=== PATIENT | male | born 1985 | race Caucasian/White ===

== ENCOUNTER 2020-08-26 07:46 | Emergency (ER) | payer MEDICAID, OTHER ==
[2020-08-26] MEDS ORDERED: NS 1,000 ML IV ONE (08:05)
[2020-08-26] MEDS ORDERED: ONDANSETRON 4MG/2ML VIAL IV ONE (08:20)
[2020-08-26 08:21] LABS: BASO % 0.1 % (0.0-1.0); HEMATOCRIT 44.1 % (42.0-52.0); HEMOGLOBIN 15.4 g/dl (13.5-17.5); LYMPH # 1.4 10^3/uL (1.5-5.0); LYMPH % 11.7 % (24.0-44.0); MEAN CORPUSCULAR HEMOGLOBIN 31.4 pg (27.0-33.0); MEAN CORPUSCULAR HGB CONC 34.9 g/dl (32.0-36.5); MEAN CORPUSCULAR VOLUME 89.8 fl (80.0-96.0); MONO # 0.5 10^3/uL (0.0-0.8); MONO % 4.5 % (2.0-8.0); NEUTROPHILS # 9.9 10^3/uL (1.5-8.5); NEUTROPHILS % 83.4 % (36.0-66.0); PLATELET COUNT, AUTOMATED 278 10^3/uL (150-450); RED BLOOD COUNT 4.91 10^6/uL (4.30-6.10); WHITE BLOOD COUNT 11.8 10^3/uL (4.0-10.0)
--- NOTE | 2020-08-26 08:38 | REP ---
INDICATION: Altered Mental Status. COMPARISON: 11/09/2012. TECHNIQUE: Single portable AP view of the chest was performed. FINDINGS: There is no acute infiltrate or pulmonary edema. Lungs are clear. The heart is not significantly enlarged. The mediastinal silhouette is unremarkable. The visualized osseous structures are intact. IMPRESSION: No acute pulmonary disease. <Electronically signed by Beau Hopkins > 08/26/20 0834
[2020-08-26] MEDS ORDERED: ISOVUE-370 76% 100ML VIAL As Ordered ONE (08:41)
[2020-08-26 09:01] LABS: ACETAMINOPHEN LEVEL < 2.0 UG/ML (10.0-30.0); ALBUMIN 4.5 GM/DL (3.2-5.2); ALT/SGPT 19 U/L (12-78); BILIRUBIN,DIRECT 0.2 MG/DL (0.0-0.2); BILIRUBIN,TOTAL 0.6 MG/DL (0.2-1.0); BLOOD UREA NITROGEN 18 MG/DL (7-18); CARBON DIOXIDE LEVEL 25 MEQ/L (21-32); CHLORIDE LEVEL 100 MEQ/L (98-107); CK-MB VALUE MASS < 1.0 NG/ML (<3.6); CPK CREATINE PHOSPHOKINASE 95 U/L (39-308); CREATININE FOR GFR 0.93 MG/DL (0.70-1.30); ETHYL ALCOHOL (ETHANOL) < 0.003 % (0.000-0.010); GLOMERULAR FILTRATION RATE > 60.0 (>60); GLUCOSE, FASTING 104 MG/DL (70-100); MB/CK RELATIVE INDEX 1.05 (< OR =4); POTASSIUM SERUM 3.8 MEQ/L (3.5-5.1); SALICYLATE LEVEL < 1.7 MG/DL (5.0-30.0); SODIUM LEVEL 136 MEQ/L (136-145); TOTAL PROTEIN 7.9 GM/DL (6.4-8.2); TROPONIN I < 0.02 NG/ML (< 0.10)
[2020-08-26 09:15] LABS: AMPHETAMINES LEVEL URINE NEGATIVE (NEGATIVE); BARBITURATES URINE NEGATIVE (NEGATIVE); BENZODIAZEPINES URINE NEGATIVE (NEGATIVE); CANNABINOIDS URINE POSITIVE (NEGATIVE); COCAINE METABOLITE URINE NEGATIVE (NEGATIVE); METHADONE URINE NEGATIVE (NEGATIVE); OPIATES URINE NEGATIVE (NEGATIVE); PHENCYCLIDINE URINE NEGATIVE (NEGATIVE)
[2020-08-26 09:17] LABS: RSV AMPLIFICATION NEGATIVE (NEGATIVE)
--- NOTE | 2020-08-26 09:27 | REP ---
INDICATION: altered mental status - back pain. COMPARISON: 11/17/2013. TECHNIQUE: CT angiogram chest performed following the intravenous administration of 100 cc of Isovue 370. Sagittal and coronal reconstruction images are performed. FINDINGS: Lungs: Clear, no infiltrate or nodule. There is mild biapical emphysematous change and interstitial fibrosis. Mediastinum: No adenopathy. Pulmonary arteries: No evidence of pulmonary embolism. Judy: No adenopathy. Axilla: No adenopathy. Pleura: No effusion. Heart: Not enlarged. Thoracic aorta: No aneurysm or dissection. Visualized osseous structures: Unremarkable. IMPRESSION: No CT evidence of pulmonary embolism. No infiltrate seen. <Electronically signed by Beau Hopkins > 08/26/20 0948
--- NOTE | 2020-08-26 09:34 | REP ---
INDICATION: altered mental status - back pain COMPARISON: 03/18/2014. TECHNIQUE: CT Scan of the abdomen and pelvis was performed with intravenous administration of 100 cc of Isovue 370, without oral contrast. Sagittal and coronal reconstruction images are performed. FINDINGS: Lung bases: Unremarkable. Liver: Normal Gallbladder: Unremarkable. Spleen: Normal. Adrenals: Normal. Pancreas: Normal. Kidneys: Normal. Small and large bowel: Unremarkable. Free fluid: None. Abdominal aorta: No aneurysm or dissection. Adenopathy: None. Appendix: Not inflamed. Osseous structures: Unremarkable. Pelvis: No mass. IMPRESSION: Negative CT abdomen and pelvis. <Electronically signed by Beau Hopkins > 08/26/20 [id number]
--- NOTE | 2020-08-26 10:23 | REPVR ---
PROCEDURE INFORMATION: Exam: CT Head Without Contrast Exam date and time: 08/26/2020 8:53 AM Age: 34 years old Clinical indication: Altered mental status/memory loss TECHNIQUE: Imaging protocol: Computed tomography of the head without contrast. Radiation optimization: All CT scans at this facility use at least one of these dose optimization techniques: automated exposure control; mA and/or kV adjustment per patient size (includes targeted exams where dose is matched to clinical indication); or iterative reconstruction. COMPARISON: CT Head without contrast 11/17/2013 11:19 AM FINDINGS: Brain: Normal. No hemorrhage. Unremarkable white matter. No mass effect. Cerebral ventricles: The ventricles and sulci are stable in configuration. Paranasal sinuses: Visualized sinuses are unremarkable. No fluid levels. Mastoid air cells: Visualized mastoid air cells are well aerated. Bones/joints: Unremarkable. No acute fracture. Soft tissues: Unremarkable. IMPRESSION: No CT evidence for acute intracranial abnormality. Electronically signed by: Edmundo Khan On 08/26/2020 10:22:59 AM
[2020-08-26 11:16] VITALS: BP 105/59
[2020-08-26] MEDS ORDERED: ZOFR4TAB16 PO (11:22)
--- NOTE | 2020-08-27 06:46 | ECGEPIP ---
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
== END 2020-08-26 11:41 | disposition home or self-care (01) ==
LOC: EDBD 07:46 → M ED 07:46
DX: R11.10 Vomiting, unspecified (principal); M79.10 Myalgia, unspecified site; F19.10 Other psychoactive substance abuse, uncomplicated; R00.1 Bradycardia, unspecified; G40.909 Epilepsy, unspecified, not intractable, without status epilepticus; F17.200 Nicotine dependence, unspecified, uncomplicated
CPT/HCPCS: 36600; 70450; 71045; 71275; 74177; 80047; 80048; 80076; 80143; 80307; 81001; 82077; 82140; 82550; 82553; 82803; 83605; 84443; 85025; 87040; 87631; 93005; 93041; 94760; 96361; 96374; 99285; J2405; Q9967

== ENCOUNTER 2020-08-27 08:39 | Emergency (ER) | payer MEDICAID ==
[~2020-08-27 08:39] MED LIST: ZOFR4TAB16 PO
[2020-08-27] MEDS ORDERED: diphenhydrAMINE 50MG/ML VIAL (J1200) As Ordered ONE (09:01)
[2020-08-27] MEDS ORDERED: HALOPERIDOL 5MG/ML VIAL (J1630 PER 1) As Ordered ONE (09:01)
[2020-08-27] MEDS ORDERED: LORazepam 2 MG/ML VIAL As Ordered ONE (09:01)
[2020-08-27] MEDS ORDERED: diphenhydrAMINE 50MG/ML VIAL (J1200) IM ONE (09:05)
[2020-08-27] MEDS ORDERED: HALOPERIDOL 5MG/ML VIAL (J1630 PER 1) IM ONE (09:05)
[2020-08-27] MEDS ORDERED: LORazepam 2 MG/ML VIAL IM ONE (09:05)
[2020-08-27 09:26] LABS: VENOUS BASE EXCESS 6.2 (-2.0-2.0); VENOUS HCO3 27.8 MEQ/L (23.0-27.0); VENOUS O2 SATURATION 79.7 % (60.0-80.0); VENOUS PARTIAL PRESSURE CO2 31.5 mmHg (38.0-50.0); VENOUS PARTIAL PRESSURE O2 37.4 mmHg (30.0-50.0); VENOUS PH 7.563 UNITS (7.330-7.430); VENOUS STANDARD HCO3 29.5 MEQ/L; VENOUS TOTAL CO2 28.7 MEQ/L (24.0-28.0)
[2020-08-27 09:29] LABS: BASO % 0.1 % (0.0-1.0); HEMATOCRIT 45.1 % (42.0-52.0); HEMOGLOBIN 15.8 g/dl (13.5-17.5); LYMPH # 1.5 10^3/uL (1.5-5.0); MEAN CORPUSCULAR HEMOGLOBIN 31.7 pg (27.0-33.0); MEAN CORPUSCULAR VOLUME 90.6 fl (80.0-96.0); MONO # 0.5 10^3/uL (0.0-0.8); MONO % 6.5 % (2.0-8.0); NEUTROPHILS # 5.9 10^3/uL (1.5-8.5); PLATELET COUNT, AUTOMATED 264 10^3/uL (150-450); RED BLOOD COUNT 4.98 10^6/uL (4.30-6.10); WHITE BLOOD COUNT 7.9 10^3/uL (4.0-10.0)
--- NOTE | 2020-08-27 09:33 | REP ---
INDICATION: Altered Mental Status. COMPARISON: Yesterday TECHNIQUE: Portable FINDINGS: The technique utilized in obtaining the radiograph has magnified the cardiac silhouette and accentuated the interstitial markings. The superior mediastinal structures are midline. The cardiac silhouette is unremarkable in size, shape, and position. The diaphragmatic surfaces of the lungs are regular, and the costophrenic angles are clear. The pulmonary cochran are clear. The imaged osseous structures are intact. IMPRESSION: There is no acute cardiopulmonary disease. No significant change from yesterday <Electronically signed by Mono Green > 08/27/20 0989
[2020-08-27 09:59] LABS: OSMOLALITY SERUM 278 MOSM/KG (275-295)
[2020-08-27 10:03] LABS: ACETAMINOPHEN LEVEL < 2.0 UG/ML (10.0-30.0); ALBUMIN 4.5 GM/DL (3.2-5.2); ALT/SGPT 19 U/L (12-78); BILIRUBIN,DIRECT 0.2 MG/DL (0.0-0.2); BILIRUBIN,TOTAL 0.9 MG/DL (0.2-1.0); BLOOD UREA NITROGEN 17 MG/DL (7-18); CALCIUM LEVEL 9.6 MG/DL (8.5-10.1); CARBON DIOXIDE LEVEL 28 MEQ/L (21-32); CHLORIDE LEVEL 97 MEQ/L (98-107); CK-MB VALUE MASS < 1.0 NG/ML (<3.6); CPK CREATINE PHOSPHOKINASE 146 U/L (39-308); CREATININE FOR GFR 0.92 MG/DL (0.70-1.30); ETHYL ALCOHOL (ETHANOL) < 0.003 % (0.000-0.010); GLOMERULAR FILTRATION RATE > 60.0 (>60); GLUCOSE, FASTING 98 MG/DL (70-100); MB/CK RELATIVE INDEX 0.68 (< OR =4); POTASSIUM SERUM 3.4 MEQ/L (3.5-5.1); SALICYLATE LEVEL < 1.7 MG/DL (5.0-30.0); SODIUM LEVEL 134 MEQ/L (136-145); THYROID STIMULATING HORMONE 0.872 uIU/ML (0.358-3.740); TROPONIN I < 0.02 NG/ML (< 0.10)
--- NOTE | 2020-08-27 10:07 | REP ---
INDICATION: Altered Mental Status. COMPARISON: Yesterday TECHNIQUE: 4.5 mm contiguous transaxial sections were obtained from the skull base to the cerebral convexities with thin cuts through the posterior fossa without the administration of intravenous contrast. FINDINGS: The ventricles and sulci are consistent with the patient's age. There are no extra-axial fluid collections. There is no mass effect. The deep cerebral white matter is consistent with the patient's age. The orbital and petrous structures, cerebellopontine angles, and posterior fossa are unremarkable. The sella turcica, cavernous, and paracavernous structures are essentially unremarkable. The visualized portions of the paranasal sinuses and mastoid air cells are clear. Images of the skull base show no gross abnormality. IMPRESSION: Essentially unremarkable CT examination of the brain. No significant change compared to yesterday <Electronically signed by Mono Green > 08/27/20 0320
--- NOTE | 2020-08-27 10:09 | REP ---
INDICATION: altered mental. COMPARISON: 11/17/2013 TECHNIQUE: Standard helical technique using 2 mm increments and reconstructed in both sagittal and coronal planes FINDINGS: Vertebral body height and alignment is unchanged. The disc spaces are unchanged. The facet joints are again seen to be well aligned bilaterally. There is no acute fracture, dislocation, or subluxation. The paraspinal soft tissues are unchanged. The imaged upper lung cochran are unchanged. IMPRESSION: No change from 11/17/2013. No acute abnormality. <Electronically signed by Mono Green > 08/27/20 [id number]
[2020-08-27] MEDS ORDERED: NS 1,000 ML IV ONE (11:00)
[2020-08-27 14:56] LABS: AMPHETAMINES LEVEL URINE NEGATIVE (NEGATIVE); BARBITURATES URINE NEGATIVE (NEGATIVE); BENZODIAZEPINES URINE NEGATIVE (NEGATIVE); CANNABINOIDS URINE POSITIVE (NEGATIVE); COCAINE METABOLITE URINE NEGATIVE (NEGATIVE); METHADONE URINE NEGATIVE (NEGATIVE); OPIATES URINE NEGATIVE (NEGATIVE); PHENCYCLIDINE URINE NEGATIVE (NEGATIVE)
[2020-08-27 15:00] VITALS: BP 114/66
--- NOTE | 2020-08-28 14:18 | ECGEPIP ---
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
== END 2020-08-27 15:30 | disposition left against medical advice (07) ==
LOC: EDBD 08:39 → M ED 08:39
DX: R56.9 Unspecified convulsions (principal); R41.82 Altered mental status, unspecified; Z53.9 Procedure and treatment not carried out, unspecified reason; F19.10 Other psychoactive substance abuse, uncomplicated; F17.200 Nicotine dependence, unspecified, uncomplicated
CPT/HCPCS: 36415; 70450; 71045; 72125; 80048; 80076; 80143; 80307; 81001; 82077; 82550; 82553; 82803; 83605; 83930; 84443; 85025; 93005; 93041; 94760; 96361; 96372; 99285; J1200; J1630; J2060

== ENCOUNTER 2024-04-21 07:53 | Inpatient (IN) | payer MEDICARE, MEDICAID ==
[~2024-04-21] VITALS: Ht 172.7 cm; Wt 58.4 kg
[2024-04-21] MEDS: NS (Normal Saline) 0.9% 1,000 ML IV ONE (08:09)
[2024-04-21] MEDS ORDERED: ISOVUE-370 76% 100ML VIAL As Ordered ONE (08:11)
[2024-04-21 08:14] LABS: VENOUS BASE EXCESS 16.9 (-2.0-2.0); VENOUS HCO3 40.5 MMOL/L (23.0-27.0); VENOUS O2 SATURATION 89.7 % (60.0-80.0); VENOUS PARTIAL PRESSURE CO2 42.3 mmHg (38.0-50.0); VENOUS PARTIAL PRESSURE O2 51.4 mmHg (30.0-50.0); VENOUS PH 7.599 UNITS (7.330-7.430); VENOUS STANDARD HCO3 40.8 MMOL/L; VENOUS TOTAL CO2 41.8 MMOL/L (24.0-28.0)
[2024-04-21 08:26] LABS: BASO % 0.1 % (0.0-1.0); EOS % 0.1 % (0.0-3.0); HEMATOCRIT 44.9 % (42.0-52.0); HEMOGLOBIN 15.7 g/dl (13.5-17.5); LYMPH # 1.6 10^3/uL (1.5-5.0); LYMPH % 14.7 % (24.0-44.0); MEAN CORPUSCULAR HEMOGLOBIN 31.5 pg (27.0-33.0); MONO % 8.8 % (2.0-8.0); NEUTROPHILS # 8.3 10^3/uL (1.5-8.5); PLATELET COUNT, AUTOMATED 170 10^3/uL (150-450); RED BLOOD COUNT 4.99 10^6/uL (4.30-6.10); WHITE BLOOD COUNT 10.9 10^3/uL (4.0-10.0)
[2024-04-21] MEDS: methylPREDNISolone 125MG 2ML VIAL IV ONE (08:37)
[2024-04-21] MEDS: levETIRAcetam INJection 1,000 MG in IV 1 EA IV ONE (08:37)
[2024-04-21] MEDS: IPRATROPIUM 0.5MG/ALBUTEROL 2.5MG INH SOL UD 3ML NEB ONE (08:46)
[2024-04-21] MEDS: ALBUTEROL SULFATE 2.5MG/0.5ML INH CONCENTRATE NEB SOLN INH ONE (08:46)
[2024-04-21] MEDS: NICOTINE 14 MG/24 HR TRANSDERMAL TD SCH (09:00)
[2024-04-21 09:05] LABS: LIPASE 22 U/L (12-53)
[2024-04-21 09:07] LABS: CPK CREATINE PHOSPHOKINASE 102 U/L (46-171)
[2024-04-21 09:18] LABS: PROCALCITONIN 0.08 ng/ml
[2024-04-21] MEDS: LevoFLOXacin IV 750 MG in IV 1 EA IV ONE (09:21)
[2024-04-21 09:31] LABS: ALKALINE PHOSPHATASE 61 U/L (40-129); ALT/SGPT 20 U/L (7.0-40); AST/SGOT 21 U/L (<34); BILIRUBIN,DIRECT 0.4 MG/DL (<0.4); BLOOD UREA NITROGEN 22 MG/DL (9-23); CALCIUM LEVEL 8.9 MG/DL (8.5-10.1); CARBON DIOXIDE LEVEL > 40.0 MMOL/L (20-31); CHLORIDE LEVEL 79 MMOL/L (98-107); CK-MB VALUE MASS < 1.0 NG/ML (<3.6); CREATININE FOR GFR 0.71 MG/DL (0.70-1.30); FREE T4 1.79 NG/DL (0.89-1.76); GLOMERULAR FILTRATION RATE > 60.0 (>60); GLUCOSE, FASTING 114 MG/DL (60-100); MAGNESIUM LEVEL 2.7 MG/DL (1.8-2.4); MB/CK RELATIVE INDEX 0.98 (< OR =4); POTASSIUM SERUM 2.4 MMOL/L (3.5-5.1); SODIUM LEVEL 130 MMOL/L (136-145); THYROID STIMULATING HORMONE 0.529 uIU/ML (0.55-4.78); TOTAL PROTEIN 7.6 G/DL (5.7-8.2)
[2024-04-21] MEDS ORDERED: POTASSIUM CHLORIDE 10MEQ SR TABLET PO ONE (09:35)
[2024-04-21 09:55] LABS: CK-MB VALUE MASS < 1.0 NG/ML (<3.6)
[2024-04-21 09:55] LABS: KETONE, URINE AUTO RFX NEGATIVE (NEGATIVE); LEUKOCYTE ESTERASE UR AUTO RFX NEGATIVE (NEGATIVE); MUCUS, URINE RFX SMALL (NEGATIVE); NITRITE, URINE AUTO RFX NEGATIVE (NEGATIVE); RBC, URINE AUTO RFX 2 /HPF (0-3); SQUAM EPITHELIAL CELL UR AURFX 0 /HPF (0-6); WBC, URINE AUTO RFX 1 /HPF (0-3)
[2024-04-21 09:57] LABS: CPK CREATINE PHOSPHOKINASE 87 U/L (46-171); MB/CK RELATIVE INDEX 1.14 (< OR =4)
[2024-04-21 09:58] LABS: FREE T4 1.66 NG/DL (0.89-1.76)
[2024-04-21 09:59] LABS: THYROID STIMULATING HORMONE 0.415 uIU/ML (0.55-4.78)
[2024-04-21] MEDS ORDERED: HOME MED LIST COMPLETE! XX SCH (10:10)
[2024-04-21] MEDS ORDERED: ONDA-83 PO (10:10)
[2024-04-21 10:12] LABS: ABG pH (ARTERIAL) 7.553 UNITS (7.350-7.450)
[2024-04-21 10:13] LABS: ABG BASE EXCESS 14.9 (-2.0-2.0); ABG HCO3 39.2 MMOL/L (22.0-26.0); ABG O2 SATURATION 94.8 % (95.0-99.0); ABG PARTIAL PRESSURE CO2 45.5 mmHg (35.0-45.0); ABG PARTIAL PRESSURE O2 70.1 mmHg (75.0-100.0); ABG STANDARD HCO3 38.8 MMOL/L. (22.0-26.0); ABG TOTAL CO2 40.6 MMOL/L (22.0-29.0)
[2024-04-21 10:21] LABS: OSMOLALITY SERUM 281 MOSM/KG (275-295)
[2024-04-21 10:36] LABS: AMPHETAMINES LEVEL URINE NEGATIVE (NEGATIVE); BENZODIAZEPINES URINE NEGATIVE (NEGATIVE); COCAINE METABOLITE URINE NEGATIVE (NEGATIVE); METHADONE URINE NEGATIVE (NEGATIVE); OPIATES URINE NEGATIVE (NEGATIVE)
[2024-04-21 10:37] LABS: BARBITURATES URINE POSITIVE (NEGATIVE); CANNABINOIDS URINE POSITIVE (NEGATIVE); PHENCYCLIDINE URINE NEGATIVE (NEGATIVE)
[2024-04-21 10:39] LABS: CREATININE,RANDOM URINE 122.1 MG/DL
[2024-04-21] MEDS: KCL 10MEQ/100ML SWI (KRUN) 10 MEQ in IV 1 EA IV ONE ×2 (11:19→12:33)
[2024-04-21] MEDS ORDERED: ONDANSETRON 4MG 2ML VIAL IV PRN (12:35)
[2024-04-21] MEDS ORDERED: MOM 30ML SUSPENSION UDC PO PRN (12:35)
[2024-04-21] MEDS ORDERED: ACETAMINOPHEN 325 MG TAB PO PRN (12:35)
[2024-04-21 13:40] LABS: PHOSPHORUS LEVEL 2.8 MG/DL (2.5-4.9)
[2024-04-21] MEDS: OSELTAMIVIR 6 MG/ML SUSP PO SCH (14:15)
[2024-04-21] MEDS: SCOPOLAMINE 1MG TRANSDERMAL PATCH TOP SCH (14:15)
[2024-04-21] MEDS: METOCLOPRAMIDE INJ 10MG/2ML VIAL IV SCH (14:18)
[2024-04-21 14:30] VITALS: BP 115/70; TEMP 97.3; O2SAT 91
[2024-04-21] MEDS: KCL 10MEQ/100ML SWI (KRUN) 10 MEQ in IV 1 EA IV SCH ×2 (15:06→22:23)
[2024-04-21] MEDS: IPRATROPIUM 0.5MG/ALBUTEROL 2.5MG INH SOL UD 3ML INH SCH (15:18)
[2024-04-21] MEDS: MOXIFLOXACIN HCL 400 MG in IV 1 EA IV SCH (15:21)
[2024-04-21] MEDS: MORPHINE 2 MG/ML 1ML VIAL IV PRN (17:01)
[2024-04-21] MEDS: levETIRAcetam INJection 500 MG in DEXTROSE 5% (D5W) MINI-BAG PLU 100 ML IV SCH (17:01)
[2024-04-21] MEDS: POTASSIUM CHLORIDE INJ 40 MEQ in LR 1,000 ML IV SCH (17:51)
[2024-04-21] MEDS: ACETAMINOPHEN 500 MG TAB PO SCH (17:52)
[2024-04-21 19:57] VITALS: BP 131/69; TEMP 98.2; O2SAT 90
[2024-04-21 20:20] VITALS: O2SAT 86
[2024-04-21 20:25] VITALS: O2SAT 90
[2024-04-21 20:30] VITALS: O2SAT 94
[2024-04-21] MEDS: DOCUSATE SODIUM 100MG CAPSULE PO SCH (20:58)
[2024-04-22] MEDS: MORPHINE 4 MG/ML 1ML VIAL IV PRN (00:23)
[2024-04-22 03:29] VITALS: BP 109/70; TEMP 97.5; O2SAT 94
[2024-04-22 05:17] LABS: MEAN CORPUSCULAR HEMOGLOBIN 31.5 pg (27.0-33.0); MEAN CORPUSCULAR HGB CONC 34.9 g/dl (32.0-36.5); MEAN CORPUSCULAR VOLUME 90.4 fl (80.0-96.0); PLATELET COUNT, AUTOMATED 163 10^3/uL (150-450); RED BLOOD COUNT 3.87 10^6/uL (4.30-6.10); WHITE BLOOD COUNT 11.4 10^3/uL (4.0-10.0)
[2024-04-22 05:23] LABS: HEMOGLOBIN 12.2 g/dl (13.5-17.5)
[2024-04-22 05:51] LABS: ALBUMIN 2.9 G/DL (3.2-5.2); BLOOD UREA NITROGEN 13 MG/DL (9-23); CARBON DIOXIDE LEVEL 33 MMOL/L (20-31); CHLORIDE LEVEL 94 MMOL/L (98-107); CREATININE FOR GFR 0.63 MG/DL (0.70-1.30); GLOMERULAR FILTRATION RATE > 60.0 (>60); GLUCOSE, FASTING 114 MG/DL (60-100); MAGNESIUM LEVEL 2.3 MG/DL (1.8-2.4); PHOSPHORUS LEVEL 2.6 MG/DL (2.5-4.9); POTASSIUM SERUM 3.3 MMOL/L (3.5-5.1); SODIUM LEVEL 135 MMOL/L (136-145)
[2024-04-22] MEDS: POTASSIUM CHLORIDE 10% LIQ 20MEQ/15ML UDC PO ONE (07:00)
[2024-04-22] MEDS: ENOXAPARIN 40MG/0.4ML SYRINGE (J1650 PER 10MG) SC SCH (08:07)
[2024-04-22] MEDS ORDERED: oxyCODONE 5MG TAB PO PRN ×2 (08:20)
[2024-04-22] MEDS ORDERED: METOCLOPRAMIDE 10MG TAB PO PRN (08:20)
[2024-04-22] MEDS: OSELTAMIVIR PHOSPHATE 75 MG CAP PO SCH (09:14)
[2024-04-22] MEDS: MOXIFLOXACIN 400 MG TAB PO SCH (09:14)
[2024-04-22 09:15] LABS: INFLUENZA A AMPLIFICATION POSITIVE (NEGATIVE); INFLUENZA B AMPLIFICATION NEGATIVE (NEGATIVE)
[2024-04-22 09:30] VITALS: O2SAT 92
[2024-04-22 10:36] LABS: TOTAL PROTEIN,RANDOM URINE 125.2 MG/DL (0.0-14.0)
[2024-04-22 12:00] VITALS: TEMP 97.9; O2SAT 93
[2024-04-22] MEDS: lisinopriL 5 MG TAB PO SCH (12:21)
[2024-04-22 12:48] LABS: CHOLESTEROL LEVEL 118 MG/DL (<200); HDL CHOLESTEROL 45.3 MG/DL (>40); LDL CHOLESTEROL 55.3 MG/DL (<100); NON-HDL-C 72.7 MG/DL; TRIGLYCERIDES LEVEL 87 MG/DL (<150)
[2024-04-22 13:52] LABS: HEMOGLOBIN A1c 5.2 % (4.0-6.0)
[2024-04-22] MEDS: levETIRAcetam 250MG TABLET (KEPPRA) PO SCH (20:21)
[2024-04-22 21:20] VITALS: BP 102/57; TEMP 97.7; O2SAT 92
[2024-04-23 03:40] VITALS: BP 110/63; TEMP 97.7; O2SAT 91
[2024-04-23 06:23] LABS: ALBUMIN 2.8 G/DL (3.2-5.2); BLOOD UREA NITROGEN 12 MG/DL (9-23); CALCIUM LEVEL 7.9 MG/DL (8.5-10.1); CARBON DIOXIDE LEVEL 29 MMOL/L (20-31); CHLORIDE LEVEL 103 MMOL/L (98-107); GLOMERULAR FILTRATION RATE > 60.0 (>60); GLUCOSE, FASTING 86 MG/DL (60-100); MAGNESIUM LEVEL 1.8 MG/DL (1.8-2.4); POTASSIUM SERUM 3.6 MMOL/L (3.5-5.1); SODIUM LEVEL 140 MMOL/L (136-145)
[2024-04-23] MEDS: K-PHOS ORIGINAL (POT.ACID PHOSPHATE) 500MG TAB PO SCH (09:08)
[2024-04-23 09:11] VITALS: BP 117/71
[2024-04-23] MEDS ORDERED: KEPP1TAB PO (10:44)
[2024-04-23] MEDS ORDERED: CEFD1CAP9 PO (10:44)
[2024-04-23] MEDS ORDERED: METR-265 PO (10:44)
[2024-04-23] MEDS ORDERED: LISI5TAB11 PO (10:44)
[2024-04-23] MEDS ORDERED: OSEL75CA2 PO (10:44)
[2024-04-23] MEDS ORDERED: MOXI1TAB PO (13:41)
== END 2024-04-23 11:28 | disposition home or self-care (01) | DRG 391 ==
LOC: M ED 07:53 → EDBD 07:53 → M ED INP 12:32 → M MSPAV 14:32
PROVIDERS: ADMIT Student in an Organized Health Care Education/Training Program; ATTEND Student in an Organized Health Care Education/Training Program
DX: K52.9 Noninfective gastroenteritis and colitis, unspecified (principal); J96.01 Acute respiratory failure with hypoxia; F17.200 Nicotine dependence, unspecified, uncomplicated; G40.909 Epilepsy, unspecified, not intractable, without status epilepticus; J10.1 Influenza due to other identified influenza virus with other respiratory manifestations; R59.0 Localized enlarged lymph nodes; E05.90 Thyrotoxicosis, unspecified without thyrotoxic crisis or storm; K02.9 Dental caries, unspecified; R94.31 Abnormal electrocardiogram [ECG] [EKG]; R80.9 Proteinuria, unspecified; Z79.899 Other long term (current) drug therapy; Z88.0 Allergy status to penicillin; Z88.6 Allergy status to analgesic agent

== ENCOUNTER 2024-04-26 17:55 | Emergency (ER) | payer OTHER, MEDICAID ==
[~2024-04-26] VITALS: Ht 157.5 cm; Wt 62.2 kg
[~2024-04-26 17:55] MED LIST changes: +CEFD1CAP9 PO; +KEPP1TAB PO; +LISI5TAB11 PO; +METR-265 PO; +MOXI1TAB PO; +ONDA-83 PO; +OSEL75CA2 PO
[2024-04-26 18:10] VITALS: BP 122/75; TEMP 99.2; O2SAT 98
[2024-04-26] MEDS ORDERED: LORazepam 2 MG/ML 1ML VIAL IV PRN (18:20)
[2024-04-26 18:33] LABS: VENOUS BASE EXCESS 2.7 (-2.0-2.0); VENOUS HCO3 27.5 MMOL/L (23.0-27.0); VENOUS O2 SATURATION 71.5 % (60.0-80.0); VENOUS PH 7.424 UNITS (7.330-7.430); VENOUS STANDARD HCO3 26.2 MMOL/L; VENOUS TOTAL CO2 28.8 MMOL/L (24.0-28.0)
[2024-04-26 18:36] LABS: BASO % 0.2 % (0.0-1.0); EOS % 0.4 % (0.0-3.0); HEMATOCRIT 40.7 % (42.0-52.0); HEMOGLOBIN 14.1 g/dl (13.5-17.5); LYMPH # 1.3 10^3/uL (1.5-5.0); LYMPH % 14.3 % (24.0-44.0); MEAN CORPUSCULAR HEMOGLOBIN 31.6 pg (27.0-33.0); MEAN CORPUSCULAR HGB CONC 34.6 g/dl (32.0-36.5); MEAN CORPUSCULAR VOLUME 91.3 fl (80.0-96.0); MONO % 10.4 % (2.0-8.0); NEUTROPHILS # 6.8 10^3/uL (1.5-8.5); NEUTROPHILS % 73.9 % (36.0-66.0); PLATELET COUNT, AUTOMATED 300 10^3/uL (150-450); RED BLOOD COUNT 4.46 10^6/uL (4.30-6.10); WHITE BLOOD COUNT 9.2 10^3/uL (4.0-10.0)
[2024-04-26] MEDS: LORazepam 2 MG TAB PO STA (18:45)
[2024-04-26 19:06] LABS: CK-MB VALUE MASS < 1.0 NG/ML (<3.6); ETHYL ALCOHOL (ETHANOL) 0.004 % (0.000-0.010); LIPASE 24 U/L (12-53)
[2024-04-26 19:08] LABS: ALBUMIN 3.3 G/DL (3.2-5.2); ALKALINE PHOSPHATASE 59 U/L (40-129); ALT/SGPT 12 U/L (7.0-40); AST/SGOT 11 U/L (<34); BILIRUBIN,DIRECT 0.2 MG/DL (<0.4); BILIRUBIN,TOTAL 0.4 MG/DL (0.3-1.2); BLOOD UREA NITROGEN 6 MG/DL (9-23); CALCIUM LEVEL 8.3 MG/DL (8.5-10.1); CARBON DIOXIDE LEVEL 25 MMOL/L (20-31); CHLORIDE LEVEL 102 MMOL/L (98-107); CREATININE FOR GFR 0.65 MG/DL (0.70-1.30); GLOMERULAR FILTRATION RATE > 60.0 (>60); GLUCOSE, FASTING 104 MG/DL (60-100); POTASSIUM SERUM 3.8 MMOL/L (3.5-5.1); SODIUM LEVEL 137 MMOL/L (136-145); TOTAL PROTEIN 6.5 G/DL (5.7-8.2)
[2024-04-26 19:09] LABS: THYROID STIMULATING HORMONE 2.057 uIU/ML (0.55-4.78)
[2024-04-26 19:10] LABS: FREE T4 1.44 NG/DL (0.89-1.76)
[2024-04-26 19:16] LABS: CPK CREATINE PHOSPHOKINASE 31 U/L (46-171); MB/CK RELATIVE INDEX 3.22 (< OR =4)
[2024-04-26] MEDS: ACETAMINOPHEN 325 MG TAB PO ONE (21:00)
== END 2024-04-26 22:34 | disposition home or self-care (01) ==
LOC: EDBD 17:55 → M ED 17:55
DX: R07.9 Chest pain, unspecified (principal); F41.9 Anxiety disorder, unspecified; I10 Essential (primary) hypertension; Z88.0 Allergy status to penicillin; Z88.6 Allergy status to analgesic agent; Z79.899 Other long term (current) drug therapy

== ENCOUNTER → 2024-05-06 | Outpatient (REF) | payer MEDICARE, MEDICAID ==
[~2024-05-06] MED LIST changes: +ACET-683 PO
[2024-05-06 17:40] LABS: ALBUMIN 3.9 G/DL (3.2-5.2); ALKALINE PHOSPHATASE 83 U/L (40-129); ALT/SGPT 15 U/L (7.0-40); AST/SGOT 11 U/L (<34); BILIRUBIN,TOTAL 0.2 MG/DL (0.3-1.2); BLOOD UREA NITROGEN 9 MG/DL (9-23); CALCIUM LEVEL 9.1 MG/DL (8.5-10.1); CARBON DIOXIDE LEVEL 30 MMOL/L (20-31); CHLORIDE LEVEL 103 MMOL/L (98-107); CREATININE FOR GFR 0.72 MG/DL (0.70-1.30); GLOMERULAR FILTRATION RATE > 60.0 (>60); GLUCOSE, FASTING 79 MG/DL (60-100); POTASSIUM SERUM 5.2 MMOL/L (3.5-5.1); SODIUM LEVEL 140 MMOL/L (136-145); TOTAL PROTEIN 7.3 G/DL (5.7-8.2)
[2024-05-06 17:41] LABS: FREE T4 1.32 NG/DL (0.89-1.76); THYROID STIMULATING HORMONE 2.521 uIU/ML (0.55-4.78)
== END ==
LOC: M LAB REF 16:34
PROVIDERS: ATTEND Student in an Organized Health Care Education/Training Program
DX: N18.9 Chronic kidney disease, unspecified (principal); R94.6 Abnormal results of thyroid function studies

== ENCOUNTER 2024-06-20 08:33 | Observation (INO) | payer OTHER ==
[~2024-06-20] VITALS: Ht 175.3 cm; Wt 64.2 kg
[~2024-06-20 08:33] MED LIST changes: -ACET-683 PO
[2024-06-20 09:00] VITALS: BP 127/70
[2024-06-20] MEDS: lisinopriL 5 MG TAB PO SCH (09:00)
[2024-06-20] MEDS: NS (Normal Saline) 0.9% 1,000 ML IV ONE ×2 (09:02→11:47)
[2024-06-20] MEDS: levETIRAcetam INJection 1,000 MG in IV 1 EA IV ONE ×2 (09:02→16:03)
[2024-06-20] MEDS: METOCLOPRAMIDE INJ 10MG/2ML VIAL IV ONE (09:26)
[2024-06-20 09:27] LABS: BASO % 0.1 % (0.0-1.0); EOS % 0.2 % (0.0-3.0); HEMATOCRIT 45.3 % (42.0-52.0); HEMOGLOBIN 15.8 g/dl (13.5-17.5); LYMPH # 1.1 10^3/uL (1.5-5.0); LYMPH % 10.8 % (24.0-44.0); MEAN CORPUSCULAR HEMOGLOBIN 31.9 pg (27.0-33.0); MEAN CORPUSCULAR HGB CONC 34.9 g/dl (32.0-36.5); MEAN CORPUSCULAR VOLUME 91.5 fl (80.0-96.0); MONO # 0.7 10^3/uL (0.0-0.8); MONO % 7.3 % (2.0-8.0); NEUTROPHILS # 8.2 10^3/uL (1.5-8.5); NEUTROPHILS % 81.4 % (36.0-66.0); RED BLOOD COUNT 4.95 10^6/uL (4.30-6.10); WHITE BLOOD COUNT 10.1 10^3/uL (4.0-10.0)
[2024-06-20 09:45] LABS: LIPASE 22 U/L (12-53)
[2024-06-20 09:47] LABS: ALBUMIN 4.7 G/DL (3.2-5.2); ALKALINE PHOSPHATASE 58 U/L (40-129); ALT/SGPT 19 U/L (7.0-40); AST/SGOT 24 U/L (<34); BILIRUBIN,DIRECT 0.2 MG/DL (<0.4); BILIRUBIN,TOTAL 0.7 MG/DL (0.3-1.2); BLOOD UREA NITROGEN 21 MG/DL (9-23); CALCIUM LEVEL 9.3 MG/DL (8.5-10.1); CARBON DIOXIDE LEVEL 34 MMOL/L (20-31); CHLORIDE LEVEL 92 MMOL/L (98-107); CREATININE FOR GFR 0.75 MG/DL (0.70-1.30); GLOMERULAR FILTRATION RATE > 90.0 (>60); GLUCOSE, FASTING 114 MG/DL (60-100); POTASSIUM SERUM 3.1 MMOL/L (3.5-5.1); SODIUM LEVEL 139 MMOL/L (136-145); TOTAL PROTEIN 7.7 G/DL (5.7-8.2)
[2024-06-20 10:10] LABS: PLATELET COUNT, AUTOMATED 234 10^3/uL (150-450)
[2024-06-20] MEDS ORDERED: KEPP1TAB PO (10:30)
[2024-06-20] MEDS ORDERED: OVERDOSE RESCUE KIT XX SCH (10:30)
[2024-06-20] MEDS: POTASSIUM CHLORIDE 10MEQ SR TABLET PO ONE (11:11)
[2024-06-20 12:29] LABS: AMPHETAMINES LEVEL URINE NEGATIVE (NEGATIVE)
[2024-06-20 12:30] LABS: BARBITURATES URINE NEGATIVE (NEGATIVE); COCAINE METABOLITE URINE NEGATIVE (NEGATIVE); METHADONE URINE NEGATIVE (NEGATIVE); OPIATES URINE NEGATIVE (NEGATIVE); PHENCYCLIDINE URINE NEGATIVE (NEGATIVE)
[2024-06-20 12:32] LABS: BENZODIAZEPINES URINE POSITIVE (NEGATIVE); CANNABINOIDS URINE POSITIVE (NEGATIVE)
[2024-06-20] MEDS ORDERED: LORazepam 2 MG/ML 1ML VIAL IV PRN (12:40)
[2024-06-20] MEDS ORDERED: ACET-683 PO (13:43)
[2024-06-20] MEDS ORDERED: LISI5TAB11 PO (13:43)
[2024-06-20] MEDS ORDERED: HOME MED LIST COMPLETE! XX SCH (13:45)
[2024-06-20] MEDS ORDERED: levETIRAcetam INJection 1,000 MG in IV 1 EA IV ONE (13:50)
[2024-06-20] MEDS ORDERED: PROHANCE 279.3MG/ML 15ML VIAL As Ordered ONE (14:16)
[2024-06-20] MEDS: KCL 10MEQ/100ML SWI (KRUN) 10 MEQ in IV 1 EA IV SCH (14:49)
[2024-06-20] MEDS: ONDANSETRON 4MG 2ML VIAL IV PRN (14:54)
[2024-06-20 15:27] VITALS: BP 127/70; TEMP 99.3; O2SAT 98
[2024-06-20 19:56] VITALS: BP 134/78; TEMP 100.9; O2SAT 97
[2024-06-20] MEDS: ACETAMINOPHEN 325 MG TAB PO ONE (20:20)
[2024-06-20] MEDS: levETIRAcetam INJection 1,000 MG in IV 1 EA IV SCH (20:21)
[2024-06-20] MEDS ORDERED: levETIRAcetam INJection 500 MG in DEXTROSE 5% (D5W) MINI-BAG PLU 100 ML IV SCH (21:00)
[2024-06-20 23:27] VITALS: BP 114/67; TEMP 98.7; O2SAT 98
[2024-06-21 03:57] VITALS: BP 135/86; TEMP 97.9; O2SAT 98
[2024-06-21 05:55] LABS: HEMATOCRIT 38.6 % (42.0-52.0); MEAN CORPUSCULAR HEMOGLOBIN 31.8 pg (27.0-33.0); MEAN CORPUSCULAR HGB CONC 34.7 g/dl (32.0-36.5); MEAN CORPUSCULAR VOLUME 91.7 fl (80.0-96.0); PLATELET COUNT, AUTOMATED 193 10^3/uL (150-450); RED BLOOD COUNT 4.21 10^6/uL (4.30-6.10)
[2024-06-21 05:58] LABS: HEMOGLOBIN 13.4 g/dl (13.5-17.5)
[2024-06-21 06:14] LABS: ALBUMIN 3.6 G/DL (3.2-5.2); ALKALINE PHOSPHATASE 45 U/L (40-129); ALT/SGPT 13 U/L (7.0-40); AST/SGOT 14 U/L (<34); BILIRUBIN,TOTAL 0.8 MG/DL (0.3-1.2); BLOOD UREA NITROGEN 13 MG/DL (9-23); CALCIUM LEVEL 8.2 MG/DL (8.5-10.1); CARBON DIOXIDE LEVEL 28 MMOL/L (20-31); CHLORIDE LEVEL 100 MMOL/L (98-107); CREATININE FOR GFR 0.64 MG/DL (0.70-1.30); GLOMERULAR FILTRATION RATE > 90.0 (>60); GLUCOSE, FASTING 105 MG/DL (60-100); MAGNESIUM LEVEL 1.9 MG/DL (1.8-2.4); POTASSIUM SERUM 3.5 MMOL/L (3.5-5.1); SODIUM LEVEL 138 MMOL/L (136-145)
[2024-06-21 07:29] VITALS: BP 132/80; TEMP 98.9; O2SAT 99
== END 2024-06-21 07:56 | disposition left against medical advice (07) ==
LOC: EDBD 08:33 → M ED 08:33 → M ED INP 08:34 → INTOOBSV 08:34 → M PCU 15:23
PROVIDERS: ADMIT Student in an Organized Health Care Education/Training Program; ATTEND Student in an Organized Health Care Education/Training Program
DX: G40.409 Other generalized epilepsy and epileptic syndromes, not intractable, without status epilepticus (principal); T42.76XA Underdosing of unspecified antiepileptic and sedative-hypnotic drugs, initial encounter; E87.6 Hypokalemia; I10 Essential (primary) hypertension; F17.200 Nicotine dependence, unspecified, uncomplicated; Z79.899 Other long term (current) drug therapy; Z91.148 Patient's other noncompliance with medication regimen for other reason; Z88.0 Allergy status to penicillin; Z88.6 Allergy status to analgesic agent
CPT/HCPCS: 36415; 70450; 70553; 80048; 80053; 80076; 80177; 80307; 83690; 83735; 85025; 85027; 93005; 93041; 96365; 96366; 96367; 96375; 96376; 97161; 99285; A9576; J1953; J2405; J2765